=== PATIENT | male | born 1935 ===

== ENCOUNTER 2020-06-25 16:58 | Inpatient (IN) | payer OTHER ==
[~2020-06-25] VITALS: Ht 170.2 cm; Wt 64.2 kg
[2020-06-25 17:07] VITALS: Ht 170.2 cm; Wt 64.2 kg
[2020-06-25 18:23] LABS: BASOPHIL % 0.3 % (0-2)
[2020-06-25 18:33] LABS: UA SPECIFIC GRAVITY 1.015 (1.005-1.035); microscopic required? YES; urine erythrocyte 1+ (NEGATIVE)
[2020-06-25 18:34] LABS: CALCIUM 8.2 mg/dL (8.5-10.1); CARBON DIOXIDE 31.2 mmol/L (21-32); CHLORIDE SERUM 104 mmol/L (98-107); CREATININE SERUM 1.3 mg/dL (0.7-1.3); GLUCOSE SERUM 123 mg/dL (74-106); POTASSIUM SERUM 3.5 mmol/L (3.5-5.1); SODIUM SERUM 143 mmol/L (136-145)
[2020-06-25 18:35] LABS: ALKALINE PHOSPHATASE 114 U/L (46-116); ALT/SGPT 69 U/L (16-63); AST/SGOT 56 U/L (15-37); BILIRUBIN TOTAL 1.71 mg/dL (0.20-1.00); C REACTIVE PROTEIN 7.3 mg/dL (<=0.9); LACTIC DEHYDROGENASE (LDH) 476 U/L (100-190); TOTAL PROTEIN, SERUM 7.4 g/dL (6.4-8.2)
[2020-06-25 18:42] LABS: PLATELET COUNT 489 x10^3mcL (130-400); RED CELL DISTRIBUTION WIDTH 16.7 % (11.5-14.5)
[2020-06-25 18:44] LABS: ALBUMIN 2.6 g/dL (3.4-5.0)
[2020-06-25] MEDS ORDERED: COZAAR25 M1 (19:10)
[2020-06-25] MEDS ORDERED: COU2 PO (19:10)
[2020-06-25] MEDS ORDERED: AMLODIPINE BES2.5 M1 (19:11)
[2020-06-25] MEDS ORDERED: XANAX1 MG (19:11)
[2020-06-25] MEDS ORDERED: SEROQUEL25 MG (19:11)
[2020-06-25] MEDS ORDERED: FELODIPINE5 M1 PO (19:50)
[2020-06-25 21:33] LABS: AMPHETAMINE QUAL UR NONE DETECTED (See below)
[2020-06-26 04:59] LABS: BASOPHIL % 0.2 % (0-2)
[2020-06-26 05:03] LABS: PLATELET COUNT 408 x10^3mcL (130-400); RED CELL DISTRIBUTION WIDTH 16.1 % (11.5-14.5)
[2020-06-26 05:48] LABS: CALCIUM 7.4 mg/dL (8.5-10.1); CARBON DIOXIDE 30.9 mmol/L (21-32); CHLORIDE SERUM 112 mmol/L (98-107); GLUCOSE SERUM 97 mg/dL (74-106); MAGNESIUM 2.6 mg/dL (1.8-2.4); PHOSPHOROUS 3.1 mg/dL (2.5-4.9); POTASSIUM SERUM 3.7 mmol/L (3.5-5.1); SODIUM SERUM 146 mmol/L (136-145)
[2020-06-26 11:02] LABS: IRON 42 ug/dL (65-170)
[2020-06-26 11:05] LABS: TOTAL IRON BINDING CAPACITY 156 ug/dL (250-450)
[2020-06-26 16:49] VITALS: BP 127/62
[2020-06-26 22:07] VITALS: BP 131/58
[2020-06-27 05:02] VITALS: BP 134/64
[2020-06-27 07:07] LABS: BASOPHIL % 0.1 % (0-2)
[2020-06-27 07:30] LABS: CALCIUM 8.2 mg/dL (8.5-10.1); CARBON DIOXIDE 27.7 mmol/L (21-32); CHLORIDE SERUM 115 mmol/L (98-107); CREATININE SERUM 0.9 mg/dL (0.7-1.3); GLUCOSE SERUM 90 mg/dL (74-106); MAGNESIUM 2.7 mg/dL (1.8-2.4); PHOSPHOROUS 3.1 mg/dL (2.5-4.9); POTASSIUM SERUM 4.3 mmol/L (3.5-5.1); SODIUM SERUM 149 mmol/L (136-145)
[2020-06-27 07:53] LABS: PLATELET COUNT 405 x10^3mcL (130-400)
[2020-06-27 08:59] VITALS: BP 140/62
[2020-06-27 17:34] VITALS: BP 125/62
[2020-06-28 05:01] VITALS: BP 130/62
[2020-06-28 07:52] LABS: ALBUMIN 2.1 g/dL (3.4-5.0); ALKALINE PHOSPHATASE 86 U/L (46-116); ALT/SGPT 40 U/L (16-63); AST/SGOT 37 U/L (15-37); BILIRUBIN TOTAL 1.4 mg/dL (0.20-1.00); CALCIUM 8.3 mg/dL (8.5-10.1); CARBON DIOXIDE 26.4 mmol/L (21-32); CHLORIDE SERUM 114 mmol/L (98-107); CREATININE SERUM 0.9 mg/dL (0.7-1.3); GLUCOSE SERUM 86 mg/dL (74-106); MAGNESIUM 2.4 mg/dL (1.8-2.4); PHOSPHOROUS 2.8 mg/dL (2.5-4.9); POTASSIUM SERUM 3.5 mmol/L (3.5-5.1); SODIUM SERUM 147 mmol/L (136-145); TOTAL PROTEIN, SERUM 5.9 g/dL (6.4-8.2)
[2020-06-28 08:00] VITALS: BP 143/67
[2020-06-28 08:41] LABS: BASOPHIL % 0.2 % (0-2); PLATELET COUNT 384 x10^3mcL (130-400)
[2020-06-28 10:18] LABS: RED CELL DISTRIBUTION WIDTH 17.9 % (11.5-14.5)
[2020-06-28 13:00] VITALS: BP 126/63
[2020-06-28 16:22] VITALS: BP 120/57
[2020-06-28 20:14] VITALS: BP 120/57
[2020-06-29 05:51] VITALS: BP 100/45
[2020-06-29 07:52] LABS: BASOPHIL % 0.4 % (0-2); PLATELET COUNT 321 x10^3mcL (130-400)
[2020-06-29 08:04] LABS: CALCIUM 7.5 mg/dL (8.5-10.1); CARBON DIOXIDE 25.9 mmol/L (21-32); CHLORIDE SERUM 113 mmol/L (98-107); CREATININE SERUM 0.9 mg/dL (0.7-1.3); GLUCOSE SERUM 98 mg/dL (74-106); MAGNESIUM 2.3 mg/dL (1.8-2.4); PHOSPHOROUS 2.3 mg/dL (2.5-4.9); POTASSIUM SERUM 3.1 mmol/L (3.5-5.1); SODIUM SERUM 145 mmol/L (136-145)
[2020-06-29 08:27] LABS: RED CELL DISTRIBUTION WIDTH 18.3 % (11.5-14.5)
[2020-06-29 14:37] VITALS: BP 121/59
[2020-06-29 19:18] VITALS: BP 124/70
[2020-06-29 20:00] VITALS: BP 133/69
[2020-06-30 05:13] VITALS: BP 135/61
[2020-06-30 07:20] LABS: CALCIUM 7.9 mg/dL (8.5-10.1); CHLORIDE SERUM 111 mmol/L (98-107); CREATININE SERUM 0.9 mg/dL (0.7-1.3); GLUCOSE SERUM 98 mg/dL (74-106); MAGNESIUM 2.2 mg/dL (1.8-2.4); PHOSPHOROUS 2.6 mg/dL (2.5-4.9); POTASSIUM SERUM 3.6 mmol/L (3.5-5.1); SODIUM SERUM 144 mmol/L (136-145)
[2020-06-30 08:16] VITALS: BP 123/59
[2020-06-30 08:51] LABS: BASOPHIL % 0.3 % (0-2); PLATELET COUNT 354 x10^3mcL (130-400)
[2020-06-30 08:57] LABS: RED CELL DISTRIBUTION WIDTH 18.7 % (11.5-14.5)
[2020-06-30 11:57] VITALS: BP 138/56
[2020-06-30 15:48] VITALS: BP 136/59
[2020-06-30 19:14] VITALS: BP 122/40
== END 2020-06-30 21:00 | disposition hospice, home (50) | DRG 193 ==
LOC: ED 16:58 → DU 20:54
PROVIDERS: Internal Medicine; Specialist; ADMIT Hospitalist; ATTEND Hospitalist
PROC: 30233N1 Transfusion of Nonautologous Red Blood Cells into Peripheral Vein, Percutaneous Approach (ICD-10-PCS; principal; 2020-06-28)
DX: J18.9 Pneumonia, unspecified organism (principal); G93.41 Metabolic encephalopathy; D68.9 Coagulation defect, unspecified; E86.0 Dehydration; D50.9 Iron deficiency anemia, unspecified; Z20.828 Contact with and (suspected) exposure to other viral communicable diseases; Z95.4 Presence of other heart-valve replacement; Z79.899 Other long term (current) drug therapy; Z79.01 Long term (current) use of anticoagulants; Z91.19 Patient's noncompliance with other medical treatment and regimen
CPT/HCPCS: 36600; 83880; 85378; 87804; 92526-GN; 92610-GN; 97110-GP; 97530-GP; G0378; G0480; J0456; J0696; J1956; J2060; J3490; J7030; J7050; P9016; Q0092